=== PATIENT | female | born 1970 ===

== ENCOUNTER 2017-12-08 08:24 | Day surgery (SDC) | payer SELFPAY ==
[2017-01-22 09:56] VITALS: BMI 30.9
--- NOTE | 2017-12-08 10:38 | CP.SDSHP ---
Same Day Surgery H & P - History Proposed Procedure: US guided FNA of cervical node Pre-Op Diagnosis: cervical lymphadenopathy - Allergies Allergies: Allergies No Known Allergies Allergy (Verified 07/22/15 11:55) - Physical Exam Vital Signs: Vital Signs 12/08/17 09:12 Temperature 97.3 F L Pulse Rate 66 Respiratory 20 Rate Blood Pressure 109/69 O2 Sat by Pulse 97 Oximetry - Impression Impression: Pt with a 1.8 cm right neck node. Plan US guided FNA. Pt. Evaluated Today:Candidate for Anesthesia & Procedure: No - Date & Time Date: 12/08/17 Time: 10:00 Short Stay Discharge - Short Stay Discharge Admitting Diagnosis/Reason for Visit: THYROID CA WITH METS Disposition: HOME/ ROUTINE
--- NOTE | 2017-12-08 10:39 | PCM.SURG1 ---
Surgeon's Initial Post Op Note - Surgeon's Notes Surgeon: Melo Walls MD Coupon Manifest Clerk: NONE Type of Anesthesia: Local Pre-Operative Diagnosis: Right neck node Operative Findings: 1.8 cm right lower neck node. Post-Operative Diagnosis: Right neck node Operation Performed: US guided FNA Specimen/Specimens Removed: 25 gauge x 8 passes Estimated Blood Loss: EBL {In ML}: 0 Blood Products Given: N/A Drains Used: No Drains Post-Op Condition: Good Date of Surgery/Procedure: 12/08/17 Time of Surgery/Procedure: 10:30
[2017-12-08 11:02] VITALS: BP 119/77; PULSE 57; RESP 15; TEMP 97.6; O2SAT 98
--- NOTE | 2017-12-08 11:38 | US ---
PROCEDURE: Date of procedure: 12/08/2017 Procedure: Ultrasound-guided FNA of right supraclavicular lymph node, CPT 98497 Ultrasound guidance for biopsy, 19581 Medications: 3cc 1% Lidocaine HISTORY: Multiple cervical lymph nodes with a 1.8 cm right neck lymph node. TECHNIQUE: Following informed consent and procedure time-out, limited ultrasound patient's right neck demonstrates multiple lymph nodes which is normal in appearance. Largest right cervical lymph node measures 1.8 cm. The patient's neck was prepped and draped in the usual sterile fashion. The skin was anesthetized with 1 percent lidocaine. Ultrasound-guided fine needle aspiration was then performed using a 25 gauge needle. A total of 7 passes were made into the lymph node under direct ultrasound guidance. FNA specimens were obtained and sent for routine pathology and flow cytometry. A post biopsy ultrasound showed no hematoma IMPRESSION: Ultrasound-guided biopsy of enlarged right neck lymph node.
== END 2017-12-08 10:58 | disposition home or self-care (01) ==
LOC: C.LAB 08:24 → C.SPRAD 08:24
PROVIDERS: ATTEND Radiology Vascular & Interventional Radiology
DX: R59.0 Localized enlarged lymph nodes (principal)